=== PATIENT | female | born 2000 | race Caucasian/White ===

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

== ENCOUNTER 2020-08-04 15:48 | Emergency (ER) | payer BC ==
[2020-08-04] MEDS ORDERED: predniSONE 20 MG Tab PO ONE (16:02)
[2020-08-04] MEDS ORDERED: Ketorolac 60 MG/2 ML SDV IM ONE (16:02)
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
[2020-08-04 16:40] LABS: CHLORIDE,CL 102 mmol/L (98-107); SODIUM,NA 140 mmol/L (136-145)
[2020-08-04] MEDS ORDERED: Cyclobenzaprine 10 MG Tab PO ONE (17:03)
== END 2020-08-04 17:10 | disposition home or self-care (01) ==
LOC: LL.ED 15:48
DX: R20.2 Paresthesia of skin (principal); M54.6 Pain in thoracic spine; E66.9 Obesity, unspecified; F41.9 Anxiety disorder, unspecified; Z79.899 Other long term (current) drug therapy; Z68.41 Body mass index [BMI] 40.0-44.9, adult
CPT/HCPCS: 36415; 72040; 80053; 83735; 85025; 85379; 96372; 99284; J1885; J7512